=== PATIENT | male | born 1980 | race Caucasian/White ===

== ENCOUNTER 2016-08-18 17:16 | Emergency (ER) | payer OTHER ==
[~2016-08-18] VITALS: Ht 182.9 cm; Wt 81.8 kg
[~2016-08-18 17:16] MED LIST: AMOXICILLIN875 MG PO; LORTAB 5/500 501 TAB PO; NO HOME MEDICATIONS; XANAX .25M0.25 MG/TA PO
[2016-08-18 17:19] VITALS: BP 128/98; TEMP 99.4
[2016-08-18] MEDS ORDERED: PAXIL 20MG20 MG PO (17:21)
[2016-08-18 18:26] VITALS: PULSE 95
== END 2016-08-18 18:26 | disposition home or self-care (01) ==
LOC: COL.ER 17:16
DX: F41.9 Anxiety disorder, unspecified (principal); F32.9 Major depressive disorder, single episode, unspecified; F17.210 Nicotine dependence, cigarettes, uncomplicated; Z87.820 Personal history of traumatic brain injury

== ENCOUNTER 2019-01-15 21:59 | Emergency (ER) | payer SELFPAY ==
[~2019-01-15] VITALS: Ht 182.9 cm; Wt 90.9 kg
[~2019-01-15 21:59] MED LIST changes: +PAXIL 20MG20 MG PO
[2019-01-16 00:01] VITALS: BP 128/83; PULSE 81
== END 2019-01-16 00:03 | disposition home or self-care (01) ==
LOC: COL.ER 21:59
DX: S09.90XA Unspecified injury of head, initial encounter (principal); S01.81XA Laceration without foreign body of other part of head, initial encounter; F32.9 Major depressive disorder, single episode, unspecified; F41.9 Anxiety disorder, unspecified; F17.210 Nicotine dependence, cigarettes, uncomplicated; Z23 Encounter for immunization; W22.8XXA Striking against or struck by other objects, initial encounter; Y92.009 Unspecified place in unspecified non-institutional (private) residence as the place of occurrence of the external cause

== ENCOUNTER 2019-04-21 06:45 | Emergency (ER) | payer SELFPAY ==
[~2019-04-21] VITALS: Ht 180.3 cm; Wt 100.0 kg
[2019-04-21 06:49] VITALS: BP 140/67; TEMP 98.1
[2019-04-21 07:20] LABS: COLLECTION METHOD CLEAN CATCH
[2019-04-21 07:35] LABS: SQUAMOUS EPITHELIAL None Seen /hpf; URINE BACTERIA None Seen /hpf; URINE RBC >50 /hpf
[2019-04-21 07:36] LABS: PH 5 (5-8); URINE APPEARANCE Cloudy; URINE BILIRUBIN Negative (NEGATIVE); URINE COLOR Red; URINE GLUCOSE Negative (NEGATIVE); URINE KETONE Negative (NEGATIVE); URINE LEUKOCYTE ESTERASE Negative (NEGATIVE); URINE NITRATE Negative (NEGATIVE); URINE UROBILINOGEN Negative (NEGATIVE)
[2019-04-21 07:39] LABS: URINE BLOOD 3+ (NEGATIVE); URINE PROTEIN(semi-quant) 1+ (NEGATIVE)
[2019-04-21] MEDS ORDERED: OMNICEF 300MG300 MG PO ×3 (07:46→19:16)
[2019-04-21 08:11] LABS: BASO % 0.5 % (0.0-2.0); EOS # 0.2 (0.0-0.7); EOS % 2.7 % (0-4.0); GRAN # 5.1 (1.4-6.5); GRAN % 59.3 % (42.2-75.2); HEMATOCRIT 50.6 % (42.0-52.0); HEMOGLOBIN 16.9 g/dl (13.5-18.0); LYMPH # 2.6 (1.2-3.4); LYMPH % 30.7 % (20.0-51.0); MEAN CELL VOLUME 87 fl (80.0-100.0); MEAN CORPUSCULAR HEMOGLOBIN 29 pg (27.0-31.0); MEAN CORPUSCULAR HGB CONC 33 g/dl (33.0-37.0); MEAN PLATELET VOLUME 10.1 fl (7.4-10.4); MONO # 0.6 (0.1-0.6); MONO % 6.6 % (1.7-9.3); PLATELET COUNT 249 K/mm3 (130-400); RED BLOOD COUNT 5.81 M/mm3 (4.20-5.60); REDCELL DISTRIBUTION WIDTH-CV 12.8 % (11.5-14.5)
[2019-04-21 08:25] LABS: ALBUMIN 4.7 gm/dL (3.5-5.0); BILIRUBIN,TOTAL 0.5 mg/dL (0.0-1.0); CALCIUM 9.5 mg/dL (8.4-10.2); CREATININE, serum 0.95 (0.66-1.25); POTASSIUM 3.7 mmol/L (3.4-5.0); TOTAL PROTEIN 7.7 gm/dL (6.4-8.2)
[2019-04-21 09:25] VITALS: PULSE 85
== END 2019-04-21 09:26 | disposition home or self-care (01) ==
LOC: COL.ER 06:45
PROVIDERS: Emergency Medicine
DX: R31.9 Hematuria, unspecified (principal)
CPT/HCPCS: J0696